=== PATIENT | male | born 1970 | race Caucasian/White ===

== ENCOUNTER 2020-08-30 08:44 | Emergency (ER) | payer OTHER ==
[~2020-08-30] VITALS: Ht 185.4 cm; Wt 104.3 kg
[2020-08-30] MEDS ORDERED: ATOR1TAB19 PO (10:04)
[2020-08-30] MEDS ORDERED: METO1TAB87 PO (10:04)
[2020-08-30] MEDS ORDERED: ECOT81TA5 PO (10:04)
[2020-08-30] MEDS ORDERED: KETOROLAC 30 MG/ML 1ML VIAL IV ONE (10:30)
[2020-08-30] MEDS ORDERED: NS 1,000 ML IV SCH (10:30)
[2020-08-30 10:36] LABS: BASO # 0.1 10^3/uL (0.0-0.2); BASO % 0.6 % (0.0-1.0); EOS # 0.1 10^3/uL (0.0-0.5); EOS % 0.3 % (0.0-3.0); HEMATOCRIT 46.4 % (42.0-52.0); HEMOGLOBIN 15.3 g/dl (13.5-17.5); LYMPH # 2.3 10^3/uL (1.5-5.0); LYMPH % 12.4 % (24.0-44.0); MEAN CORPUSCULAR HEMOGLOBIN 29.3 pg (27.0-33.0); MEAN CORPUSCULAR VOLUME 88.7 fl (80.0-96.0); MONO # 1.3 10^3/uL (0.0-0.8); MONO % 6.9 % (2.0-8.0); NEUTROPHILS # 14.5 10^3/uL (1.5-8.5); NEUTROPHILS % 78.1 % (36.0-66.0); PLATELET COUNT, AUTOMATED 284 10^3/uL (150-450); RED BLOOD COUNT 5.23 10^6/uL (4.30-6.10); WHITE BLOOD COUNT 18.5 10^3/uL (4.0-10.0)
--- NOTE | 2020-08-30 10:53 | REP ---
INDICATION: LLQ, L groin pain hx kidney stones COMPARISON: None TECHNIQUE: Axial noncontrast images from the lung bases to the pubic symphysis with coronal and sagittal reformations. This CT examination was performed using the following dose reduction techniques: Automated exposure control, adjustment of mA and/or kv according to the patient's size, and use of iterative reconstruction technique. FINDINGS: Moderate acute left-sided obstructive uropathy with perinephric and periureteral stranding as well as hydroureter secondary to a 7 mm obstructing calculus in the distal left ureter (series 201; images 127-129). Few nonobstructing left renal calculi are also identified measuring approximately 3 mm and 5 mm. Right kidney/ureter appears normal. Liver includes 6.7 cm cyst in the medial left lobe. Spleen, pancreas, gallbladder, and bilateral adrenal glands are normal. The enteric system is without obstruction or acute inflammatory process. Normal terminal ileum and appendix identified in the right lower quadrant. Sigmoid diverticula noted without acute diverticulitis. Pelvis demonstrates normal bladder and age-appropriate prostate/seminal vesicles. No ascites. No free air. No adenopathy. Surrounding musculoskeletal structures intact. Lung bases are clear. IMPRESSION: 1. Acute left-sided obstructive uropathy with a 7 mm calculus in the distal left ureter. Few nonobstructing left renal calculi. 2. 6.7 cm cyst in the left hepatic lobe. 3. Sigmoid diverticula without acute diverticulitis. <Electronically signed by Kayden Simmons > 08/30/20 [id number]
[2020-08-30 11:00] LABS: ALBUMIN 3.7 GM/DL (3.2-5.2); ALT/SGPT 40 U/L (12-78); BILIRUBIN,DIRECT 0.2 MG/DL (0.0-0.2); BLOOD UREA NITROGEN 13 MG/DL (7-18); CALCIUM LEVEL 8.8 MG/DL (8.5-10.1); CARBON DIOXIDE LEVEL 24 MEQ/L (21-32); CHLORIDE LEVEL 107 MEQ/L (98-107); CREATININE FOR GFR 1.18 MG/DL (0.70-1.30); GLOMERULAR FILTRATION RATE > 60.0 (>60); GLUCOSE, FASTING 153 MG/DL (70-100); LIPASE 70 U/L (73-393); POTASSIUM SERUM 4.2 MEQ/L (3.5-5.1); SODIUM LEVEL 138 MEQ/L (136-145)
--- NOTE | 2020-08-30 11:09 | ED PDOC ---
Post-Departure Follow-Up ft [facility] faxed fomral report of ct abd/p for fu Dana Casanova MD Aug 30, 2020 11:09
--- NOTE | 2020-08-30 11:16 | REP ---
INDICATION: L groin/testicular pain COMPARISON: None. TECHNIQUE: Carreon scale and color Doppler evaluation using linear and curved array transducer with color Doppler evaluation. FINDINGS: The testicles and epididymi are relatively normal in contour, size, echogenicity, vascularity and overall appearance. There is no evidence for intratesticular mass lesion, infectious/inflammatory process, or torsion. Incidental solitary right 5 mm epididymal head cyst and few left epididymal cysts measuring up to 5 mm. Small nonspecific simple hydroceles. No varicoceles. Right testicle measures 3.9 x 2.3 x 2.6 cm. Left testicle measures 4.3 x 2.0 x 2.6 cm. IMPRESSION: Essentially normal scrotal ultrasound. No evidence for torsion or inflammatory/infectious process. <Electronically signed by Kayden Simmons > 08/30/20 [id number]
[2020-08-30] MEDS ORDERED: CIPR-249 PO (14:10)
[2020-08-30] MEDS ORDERED: CIPROFLOXACIN 500MG TABLET PO ONE (14:10)
[2020-08-30] MEDS ORDERED: FLOM0.4C39 PO (14:11)
[2020-08-30] MEDS ORDERED: PERC5TAB12 PO (14:17)
[2020-08-30 14:41] VITALS: BP 115/77
--- NOTE | 2020-08-30 20:11 | ECGEPIP ---
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
== END 2020-08-30 14:42 | disposition home or self-care (01) ==
LOC: M ED 08:44
DX: N20.1 Calculus of ureter (principal); Z87.442 Personal history of urinary calculi; I25.2 Old myocardial infarction; I10 Essential (primary) hypertension; E78.5 Hyperlipidemia, unspecified; K76.89 Other specified diseases of liver; K57.30 Diverticulosis of large intestine without perforation or abscess without bleeding; Z79.82 Long term (current) use of aspirin; Z79.899 Other long term (current) drug therapy
CPT/HCPCS: 74176; 76870; 80048; 80076; 81001; 83690; 85025; 93005; 93041; 93976; 94760; 96361; 96374; 99285; J1885

== ENCOUNTER → 2020-10-10 | Outpatient (CLI) | payer OTHER ==
[~2020-10-10] MED LIST: ATOR1TAB19 PO; CIPR-249 PO; ECOT81TA5 PO; FLOM0.4C39 PO; METO1TAB87 PO; PERC5TAB12 PO
[2020-10-10 16:09] LABS: BASO # 0.1 10^3/uL (0.0-0.2); EOS # 0.2 10^3/uL (0.0-0.5); EOS % 1.7 % (0.0-3.0); HEMATOCRIT 47.2 % (42.0-52.0); HEMOGLOBIN 15.2 g/dl (13.5-17.5); LYMPH % 32.7 % (24.0-44.0); MEAN CORPUSCULAR HEMOGLOBIN 29.4 pg (27.0-33.0); MEAN CORPUSCULAR HGB CONC 32.2 g/dl (32.0-36.5); MEAN CORPUSCULAR VOLUME 91.3 fl (80.0-96.0); MONO % 8.5 % (2.0-8.0); NEUTROPHILS # 6.6 10^3/uL (1.5-8.5); NEUTROPHILS % 54.3 % (36.0-66.0); PLATELET COUNT, AUTOMATED 340 10^3/uL (150-450); RED BLOOD COUNT 5.17 10^6/uL (4.30-6.10); WHITE BLOOD COUNT 12.1 10^3/uL (4.0-10.0)
[2020-10-10 16:53] LABS: ALBUMIN 3.7 GM/DL (3.2-5.2); ALT/SGPT 38 U/L (12-78); BILIRUBIN,TOTAL 0.8 MG/DL (0.2-1.0); BLOOD UREA NITROGEN 14 MG/DL (7-18); CALCIUM LEVEL 8.6 MG/DL (8.5-10.1); CARBON DIOXIDE LEVEL 26 MEQ/L (21-32); CHLORIDE LEVEL 108 MEQ/L (98-107); CREATININE FOR GFR 1.02 MG/DL (0.70-1.30); GLOMERULAR FILTRATION RATE > 60.0 (>56); GLUCOSE, FASTING 96 MG/DL (70-100); NT-PRO BNP 37 PG/ML (<125); POTASSIUM SERUM 4.5 MEQ/L (3.5-5.1); SODIUM LEVEL 139 MEQ/L (136-145)
== END ==
LOC: M WUC 12:04
PROVIDERS: ATTEND Internal Medicine Cardiovascular Disease
DX: I48.0 Paroxysmal atrial fibrillation (principal); I34.0 Nonrheumatic mitral (valve) insufficiency; I51.7 Cardiomegaly; I25.118 Atherosclerotic heart disease of native coronary artery with other forms of angina pectoris

== ENCOUNTER 2021-03-08 12:40 | Emergency (ER) | payer OTHER ==
[~2021-03-08] VITALS: Ht 185.4 cm; Wt 110.0 kg
[2021-03-08] MEDS ORDERED: CIPR-249 PO ×2 (18:49→19:18)
[2021-03-08] MEDS ORDERED: METR-265 PO ×2 (18:49→19:18)
[2021-03-08 19:24] VITALS: BP 136/76
== END 2021-03-08 19:27 | disposition home or self-care (01) ==
LOC: M ED 12:40
DX: K61.1 Rectal abscess (principal); I25.2 Old myocardial infarction; I10 Essential (primary) hypertension; E78.5 Hyperlipidemia, unspecified; Z87.442 Personal history of urinary calculi; Z95.5 Presence of coronary angioplasty implant and graft; Z79.899 Other long term (current) drug therapy; Z79.82 Long term (current) use of aspirin

== ENCOUNTER 2021-11-28 09:07 | Day surgery (SDC) | payer OTHER ==
[~2021-11-28] VITALS: Ht 185.4 cm; Wt 107.4 kg
[~2021-11-28 09:07] MED LIST changes: +ATOR80TA59 PO; +METO1TAB32 PO; +METR-265 PO; +NITR0.4S14 SL; +NS 1,000 ML IV ONE
[2021-11-28] MEDS ORDERED: propofoL 200 MG/20 ML VIAL As Ordered ONE (10:17)
[2021-11-28] MEDS ORDERED: LIDOCAINE 2% 100MG/5ML SDV (FOR ANES.) As Ordered ONE (10:17)
[2021-11-28 11:05] VITALS: BP 107/56
== END 2021-11-28 11:10 | disposition home or self-care (01) ==
LOC: M OPP 09:07
PROVIDERS: ATTEND Internal Medicine Gastroenterology
DX: Z12.11 Encounter for screening for malignant neoplasm of colon (principal); K63.5 Polyp of colon; K64.0 First degree hemorrhoids; K57.30 Diverticulosis of large intestine without perforation or abscess without bleeding; Z79.02 Long term (current) use of antithrombotics/antiplatelets; Z79.82 Long term (current) use of aspirin; Z79.899 Other long term (current) drug therapy; Z87.891 Personal history of nicotine dependence; Z87.442 Personal history of urinary calculi; I25.2 Old myocardial infarction; Z95.5 Presence of coronary angioplasty implant and graft; E78.5 Hyperlipidemia, unspecified

== ENCOUNTER 2022-05-16 17:21 | Emergency (ER) | payer OTHER ==
[~2022-05-16] VITALS: Ht 185.4 cm; Wt 106.8 kg
[~2022-05-16 17:21] MED LIST changes: -NS 1,000 ML IV ONE
[2022-05-16 18:36] LABS: BASO # 0.1 10^3/uL (0.0-0.2); BASO % 0.5 % (0.0-1.0); EOS # 0.7 10^3/uL (0.0-0.5); EOS % 5.5 % (0.0-3.0); HEMATOCRIT 40.2 % (42.0-52.0); HEMOGLOBIN 13.3 g/dl (13.5-17.5); LYMPH # 2.9 10^3/uL (1.5-5.0); LYMPH % 21.5 % (24.0-44.0); MEAN CORPUSCULAR HEMOGLOBIN 30.1 pg (27.0-33.0); MEAN CORPUSCULAR HGB CONC 33.1 g/dl (32.0-36.5); MONO # 1.2 10^3/uL (0.0-0.8); MONO % 8.7 % (2.0-8.0); NEUTROPHILS # 8.4 10^3/uL (1.5-8.5); NEUTROPHILS % 63.1 % (36.0-66.0); PLATELET COUNT, AUTOMATED 325 10^3/uL (150-450); RED BLOOD COUNT 4.42 10^6/uL (4.30-6.10); WHITE BLOOD COUNT 13.4 10^3/uL (4.0-10.0)
[2022-05-16 19:05] LABS: LIPASE 26 U/L (12-53)
[2022-05-16 19:11] LABS: ALBUMIN 2.9 G/DL (3.2-5.2); ALKALINE PHOSPHATASE 94 U/L (46-116); ALT/SGPT 27 U/L (7.0-40); AST/SGOT 20 U/L (<34); BILIRUBIN,DIRECT 0.4 MG/DL (<0.4); BILIRUBIN,TOTAL 1.3 MG/DL (0.3-1.2); BLOOD UREA NITROGEN 19 MG/DL (9-23); CALCIUM LEVEL 8.8 MG/DL (8.5-10.1); CARBON DIOXIDE LEVEL 28 MMOL/L (20-31); CHLORIDE LEVEL 103 MMOL/L (98-107); CREATININE FOR GFR 0.99 MG/DL (0.70-1.30); GLOMERULAR FILTRATION RATE > 60.0 (>56); GLUCOSE, FASTING 110 MG/DL (60-100); POTASSIUM SERUM 4.4 MMOL/L (3.5-5.1); SODIUM LEVEL 139 MMOL/L (136-145); TOTAL PROTEIN 6.3 G/DL (5.7-8.2)
[2022-05-16] MEDS ORDERED: NS 1,000 ML IV ONE (22:20)
[2022-05-16] MEDS ORDERED: MORPHINE 4 MG/ML 1ML VIAL IV ONE (22:20)
[2022-05-16] MEDS ORDERED: ONDANSETRON 4MG 2ML VIAL IV ONE (22:20)
[2022-05-16] MEDS ORDERED: ISOVUE-370 76% 100ML VIAL As Ordered ONE (22:21)
[2022-05-16 23:18] LABS: RSV AMPLIFICATION NEGATIVE (NEGATIVE)
[2022-05-16] MEDS ORDERED: PIPERACILLIN/TAZOBACTAM SOD 3.375 GM in D5W MINI-BAG PLUS 50 ML IV ONE (23:55)
[2022-05-17 01:00] VITALS: BP 112/57
== END 2022-05-17 01:35 | disposition short-term general hospital (02) ==
LOC: M ED 17:21
DX: Q44.6 Cystic disease of liver (principal); I10 Essential (primary) hypertension; E78.5 Hyperlipidemia, unspecified; Z79.82 Long term (current) use of aspirin; Z79.899 Other long term (current) drug therapy
CPT/HCPCS: 36415; 74177; 80048; 80076; 83605; 83690; 85025; 87631; 93005; 96365; 96375; 99284; J2270; J2405; J2543; Q9967

== ENCOUNTER → 2022-06-11 | Outpatient (CLI) | payer OTHER | LOC: M PLAIMG 14:41 → M PLALAB 14:41 | PROVIDERS: ATTEND Internal Medicine Infectious Disease | DX: B67.8 Echinococcosis, unspecified, of liver (principal) ==

== ENCOUNTER → 2022-07-02 | Outpatient (CLI) | payer OTHER ==
[2022-07-02 15:00] LABS: BASO # 0.1 10^3/uL (0.0-0.2); BASO % 0.6 % (0.0-1.0); EOS # 0.3 10^3/uL (0.0-0.5); EOS % 2.1 % (0.0-3.0); HEMATOCRIT 41.5 % (42.0-52.0); HEMOGLOBIN 13.3 g/dl (13.5-17.5); LYMPH % 24.1 % (24.0-44.0); MEAN CORPUSCULAR HEMOGLOBIN 29.3 pg (27.0-33.0); MEAN CORPUSCULAR VOLUME 91.4 fl (80.0-96.0); MONO # 0.9 10^3/uL (0.0-0.8); MONO % 7.6 % (2.0-8.0); NEUTROPHILS # 7.9 10^3/uL (1.5-8.5); NEUTROPHILS % 63.9 % (36.0-66.0); PLATELET COUNT, AUTOMATED 323 10^3/uL (150-450); RED BLOOD COUNT 4.54 10^6/uL (4.30-6.10); WHITE BLOOD COUNT 12.3 10^3/uL (4.0-10.0)
[2022-07-02 15:29] LABS: ERYTHROCYTE SEDIMENTATION RATE 41 mm/hr (0-20)
[2022-07-02 15:33] LABS: ALBUMIN 3.5 G/DL (3.2-5.2); ALKALINE PHOSPHATASE 101 U/L (46-116); ALT/SGPT 30 U/L (7.0-40); AST/SGOT 16 U/L (<34); BILIRUBIN,TOTAL 0.3 MG/DL (0.3-1.2); BLOOD UREA NITROGEN 21 MG/DL (9-23); CALCIUM LEVEL 9.2 MG/DL (8.5-10.1); CARBON DIOXIDE LEVEL 24 MMOL/L (20-31); CHLORIDE LEVEL 106 MMOL/L (98-107); CREATININE FOR GFR 1.14 MG/DL (0.70-1.30); GLOMERULAR FILTRATION RATE > 60.0 (>56); GLUCOSE, FASTING 103 MG/DL (60-100); POTASSIUM SERUM 4.4 MMOL/L (3.5-5.1); SODIUM LEVEL 140 MMOL/L (136-145); TOTAL PROTEIN 6.7 G/DL (5.7-8.2)
== END ==
LOC: M PLALAB 09:41
PROVIDERS: ATTEND Internal Medicine Infectious Disease
DX: B67.8 Echinococcosis, unspecified, of liver (principal)

== ENCOUNTER → 2022-07-02 | Outpatient (CLI) | payer OTHER | LOC: M RAD 10:17 | PROVIDERS: ATTEND Internal Medicine Infectious Disease | DX: B67.8 Echinococcosis, unspecified, of liver (principal) ==

== ENCOUNTER → 2022-08-01 | Outpatient (CLI) | payer OTHER | LOC: M WHC 07:51 | PROVIDERS: ATTEND Internal Medicine Infectious Disease | DX: B67.8 Echinococcosis, unspecified, of liver (principal) ==

== ENCOUNTER → 2022-09-10 | Outpatient (CLI) | payer OTHER ==
[~2022-09-10] MED LIST changes: +PROHANCE 279.3MG/ML 15ML VIAL As Ordered ONE; +PROHANCE 279.3MG/ML 5ML VIAL As Ordered ONE
== END ==
LOC: M RAD 16:00
PROVIDERS: ATTEND Internal Medicine
DX: B67 Echinococcosis (principal)

== ENCOUNTER → 2022-11-13 | Outpatient (CLI) | payer OTHER ==
[~2022-11-13] MED LIST changes: -PROHANCE 279.3MG/ML 15ML VIAL As Ordered ONE; -PROHANCE 279.3MG/ML 5ML VIAL As Ordered ONE
== END ==
LOC: M CARPUL 14:13
PROVIDERS: ATTEND Internal Medicine
DX: B67 Echinococcosis (principal)

== ENCOUNTER → 2023-02-11 | Outpatient (CLI) | payer OTHER | LOC: M RAD 15:13 | PROVIDERS: ATTEND Internal Medicine Infectious Disease | DX: B67.8 Echinococcosis, unspecified, of liver (principal) ==

== ENCOUNTER → 2023-04-03 | Outpatient (CLI) | payer OTHER | LOC: M PLARAD 08:53 | PROVIDERS: ATTEND Internal Medicine | DX: B67.90 Echinococcosis, unspecified (principal) ==

== ENCOUNTER 2023-10-30 12:30 | Emergency (ER) | payer OTHER ==
[~2023-10-30] VITALS: Ht 185.4 cm; Wt 111.1 kg
[2023-10-30] MEDS ORDERED: CLOP75TA2 (12:40)
[2023-10-30 14:01] LABS: BASO # 0.1 10^3/uL (0.0-0.2); EOS % 0.2 % (0.0-3.0); HEMATOCRIT 47.7 % (42.0-52.0); HEMOGLOBIN 15.7 g/dl (13.5-17.5); LYMPH # 2.4 10^3/uL (1.5-5.0); LYMPH % 18.3 % (24.0-44.0); MEAN CORPUSCULAR HEMOGLOBIN 29.1 pg (27.0-33.0); MEAN CORPUSCULAR HGB CONC 32.9 g/dl (32.0-36.5); MEAN CORPUSCULAR VOLUME 88.5 fl (80.0-96.0); MONO # 0.7 10^3/uL (0.0-0.8); MONO % 5.2 % (2.0-8.0); NEUTROPHILS # 9.6 10^3/uL (1.5-8.5); PLATELET COUNT, AUTOMATED 270 10^3/uL (150-450); RED BLOOD COUNT 5.39 10^6/uL (4.30-6.10); WHITE BLOOD COUNT 13.3 10^3/uL (4.0-10.0)
[2023-10-30] MEDS: NS 1,000 ML IV SCH (14:15)
[2023-10-30 14:26] LABS: LIPASE 35 U/L (12-53)
[2023-10-30 14:28] LABS: ALBUMIN 3.8 G/DL (3.2-5.2); ALKALINE PHOSPHATASE 129 U/L (46-116); ALT/SGPT 52 U/L (7.0-40); AST/SGOT 31 U/L (<34); BILIRUBIN,DIRECT 0.3 MG/DL (<0.4); BILIRUBIN,TOTAL 1.2 MG/DL (0.3-1.2); BLOOD UREA NITROGEN 17 MG/DL (9-23); CALCIUM LEVEL 9.6 MG/DL (8.5-10.1); CARBON DIOXIDE LEVEL 24 MMOL/L (20-31); CHLORIDE LEVEL 107 MMOL/L (98-107); CREATININE FOR GFR 1.03 MG/DL (0.70-1.30); GLOMERULAR FILTRATION RATE > 60.0 (>56); GLUCOSE, FASTING 193 MG/DL (60-100); POTASSIUM SERUM 4.7 MMOL/L (3.5-5.1); SODIUM LEVEL 140 MMOL/L (136-145); TOTAL PROTEIN 7.3 G/DL (5.7-8.2)
[2023-10-30 14:30] LABS: CK-MB VALUE MASS 1.1 NG/ML (<3.6)
[2023-10-30 14:36] LABS: CPK CREATINE PHOSPHOKINASE 96 U/L (46-171); MB/CK RELATIVE INDEX 1.14 (< OR =4)
[2023-10-30] MEDS: GASTROGRAFIN SOLUTION 30ML PO SCH (14:45)
[2023-10-30 14:59] LABS: INR 1.01; PARTIAL THROMBOPLASTIN TIME 23.7 SECONDS (24.8-34.2)
[2023-10-30 15:31] LABS: CK-MB VALUE MASS < 1.0 NG/ML (<3.6)
[2023-10-30 15:33] LABS: CPK CREATINE PHOSPHOKINASE 104 U/L (46-171); MB/CK RELATIVE INDEX 0.96 (< OR =4)
[2023-10-30] MEDS ORDERED: ISOVUE-370 76% 100ML VIAL As Ordered ONE (15:51)
[2023-10-30] MEDS: ONDANSETRON 4MG 2ML VIAL IV ONE (16:58)
[2023-10-30 17:00] VITALS: TEMP 96.9
[2023-10-30] MEDS: MORPHINE 4 MG/ML 1ML VIAL IV ONE (17:04)
[2023-10-30] MEDS: TAMSULOSIN 0.4 MG CAP PO ONE (17:09)
[2023-10-30 17:31] VITALS: BP 143/71
[2023-10-30 17:45] VITALS: O2SAT 97
== END 2023-10-30 18:31 | disposition home or self-care (01) ==
LOC: M ED 12:30
DX: N20.1 Calculus of ureter (principal); R00.1 Bradycardia, unspecified; I25.119 Atherosclerotic heart disease of native coronary artery with unspecified angina pectoris; I25.2 Old myocardial infarction; I10 Essential (primary) hypertension; G47.33 Obstructive sleep apnea (adult) (pediatric); E78.5 Hyperlipidemia, unspecified; Z79.1 Long term (current) use of non-steroidal anti-inflammatories (NSAID); Z79.899 Other long term (current) drug therapy
CPT/HCPCS: 36415; 74177; 80048; 80076; 81001; 82550; 82553; 83690; 84484; 85025; 85610; 85730; 93005; 93041; 96374; 96375; 99285; J2405; Q9963; Q9967

== ENCOUNTER → 2023-11-18 | Outpatient (CLI) | payer OTHER ==
[~2023-11-18] MED LIST changes: +CLOP75TA2
== END ==
LOC: M PLAIMG 09:16
PROVIDERS: ATTEND Internal Medicine Infectious Disease
DX: B67.8 Echinococcosis, unspecified, of liver (principal)

== ENCOUNTER 2024-01-14 00:24 | Emergency (ER) | payer OTHER ==
[~2024-01-14] VITALS: Ht 185.4 cm; Wt 114.2 kg
[2024-01-14 00:29] VITALS: TEMP 98
[2024-01-14] MEDS: MECLIZINE 25 MG TABLET PO ONE (02:02)
[2024-01-14 02:09] LABS: BASO # 0.1 10^3/uL (0.0-0.2); BASO % 0.5 % (0.0-1.0); EOS # 0.1 10^3/uL (0.0-0.5); EOS % 0.8 % (0.0-3.0); HEMATOCRIT 42.9 % (42.0-52.0); HEMOGLOBIN 14.6 g/dl (13.5-17.5); LYMPH # 3.4 10^3/uL (1.5-5.0); LYMPH % 24.1 % (24.0-44.0); MEAN CORPUSCULAR HEMOGLOBIN 29.9 pg (27.0-33.0); MEAN CORPUSCULAR VOLUME 87.9 fl (80.0-96.0); MONO # 1.2 10^3/uL (0.0-0.8); MONO % 8.7 % (2.0-8.0); NEUTROPHILS # 9.1 10^3/uL (1.5-8.5); NEUTROPHILS % 63.9 % (36.0-66.0); PLATELET COUNT, AUTOMATED 258 10^3/uL (150-450); RED BLOOD COUNT 4.88 10^6/uL (4.30-6.10); WHITE BLOOD COUNT 14.2 10^3/uL (4.0-10.0)
[2024-01-14 02:31] LABS: BLOOD UREA NITROGEN 15 MG/DL (9-23); CALCIUM LEVEL 9.3 MG/DL (8.5-10.1); CARBON DIOXIDE LEVEL 26 MMOL/L (20-31); CHLORIDE LEVEL 105 MMOL/L (98-107); CREATININE FOR GFR 1.01 MG/DL (0.70-1.30); GLOMERULAR FILTRATION RATE > 60.0 (>56); GLUCOSE, FASTING 172 MG/DL (60-100); POTASSIUM SERUM 3.9 MMOL/L (3.5-5.1); SODIUM LEVEL 138 MMOL/L (136-145)
[2024-01-14] MEDS ORDERED: ISOVUE-370 76% 100ML VIAL As Ordered ONE (02:38)
[2024-01-14 03:00] VITALS: BP 124/88
[2024-01-14 04:00] VITALS: O2SAT 95
[2024-01-14] MEDS: OXYCODONE/APAP 5MG/325MG(HOME DOSE PACK) PO ONE (04:51)
== END 2024-01-14 04:57 | disposition home or self-care (01) ==
LOC: M ED 00:24
DX: H70.092 Acute mastoiditis with other complications, left ear (principal); Z79.1 Long term (current) use of non-steroidal anti-inflammatories (NSAID); Z79.899 Other long term (current) drug therapy
CPT/HCPCS: 36415; 69210; 70487; 80048; 83605; 85025; 86140; 87040; 87070; 87102; 99284; G0463; Q9967

== ENCOUNTER → 2024-01-14 | Outpatient (REF) | payer OTHER | LOC: M LAB REF 17:22 | PROVIDERS: ATTEND Otolaryngology | DX: H60.8X2 Other otitis externa, left ear (principal) ==

== ENCOUNTER → 2024-04-26 | Outpatient (CLI) | payer OTHER | LOC: M RAD 11:10 | PROVIDERS: ATTEND Internal Medicine Infectious Disease | DX: B67.8 Echinococcosis, unspecified, of liver (principal) ==